=== PATIENT | female | born 2005 | race Two or more races ===

== ENCOUNTER → 2025-03-02 | Outpatient (CLI) | payer MEDICAID, SELFPAY ==
--- NOTE | 2025-03-02 13:00 | XR_ITS ---
EXAMINATION: Thyroid sonography complete TECHNIQUE: Grayscale sonographic images thyroid lobes Date and time: March 02, 2025, 1322 hours INDICATIONS: Abnormal thyroid function and laboratory examination 1 month ago, fatigue 1 year. FINDINGS: Right thyroid 5.2 cm Left thyroid 5.1 cm No thyroid nodules IMPRESSION: Thyromegaly, consider correlation with oral I-123 thyroid uptake and scan
== END | disposition home or self-care (01) ==
PROVIDERS: PCP Physician Assistant; Referring Provider Physician Assistant; Visit Provider Physician Assistant
DX: E01.0 Iodine-deficiency related diffuse (endemic) goiter (principal)
CPT/HCPCS: 76536